=== PATIENT | male | born 1965 | race Caucasian/White ===

== ENCOUNTER 2017-05-28 11:11 | Observation (INO) | payer BC ==
[~2017-05-28] VITALS: Ht 195.6 cm; Wt 108.9 kg
[~2017-05-28 11:11] MED LIST: ASPIR 8181 MG PO; LOSARTAN POTASS25 MG PO; OMEPRAZOLE40 MG PO
[2017-05-28 12:31] LABS: BASOPHILS # (AUTO) 0.1 (0.0-0.1); BASOPHILS % 1.1 % (0.0-1.0); EOSINOPHILS # (AUTO) 0.3 (0.0-0.4); EOSINOPHILS % 4.9 % (0.0-6.0); HEMATOCRIT 45.2 % (38.2-49.6); LYMPHOCYTES # (AUTO) 1.6 (1.0-3.2); LYMPHOCYTES % 30.1 % (18.0-39.1); MEAN CORPUSCULAR HEMOGLOBIN 32.8 pg (28-32); MEAN CORPUSCULAR HGB CONC 35.4 g/dL (31-35); MEAN CORPUSCULAR VOLUME 92.6 fL (81-99); MONOCYTES # (AUTO) 0.6 (0.2-0.8); MONOCYTES % 11.7 % (4.4-11.3); NEUTROPHILS # (AUTO) 2.7 (2.1-6.9); NEUTROPHILS % 51.6 % (38.7-80.0); PLATELET COUNT 186 x10e3/uL (140-360); RED BLOOD COUNT 4.88 x10e6/uL (4.3-5.7); RED CELL DISTRIBUTION WIDTH 12.5 % (11.7-14.4)
--- NOTE | 2017-05-28 12:42 | Diagnostic Imaging Report ---
PROCEDURE: A single AP view of the chest. COMPARISON: 03/22/16 INDICATIONS: CHEST PRESSURE FINDINGS: Lines/tubes: None. Lungs: The lungs are well inflated and clear. There is no evidence of pneumonia or pulmonary edema. Minimal left basilar subsegmental atelectasis. Pleura: There is no pleural effusion or pneumothorax. Heart and mediastinum: The heart and the mediastinum are unremarkable. Bones: No acute bony abnormality. Old fracture deformity of posterior right eighth rib. Unchanged elevated left hemidiaphragm. IMPRESSION: 1. No acute cardiopulmonary disease. 2. No change from prior exam. Dictated by: Romario Sanders M.D. on 05/28/2017 at 12:51 Electronically approved by: Romario Sanders M.D. on 05/28/2017 at 12:51
[2017-05-28 12:46] LABS: INR 0.89; PROTHROMBIN TIME 12.5 seconds (11.9-14.5)
[2017-05-28 12:47] LABS: PARTIAL THROMBOPLASTIN TIME 26.3 seconds (23.8-35.5)
[2017-05-28 12:49] LABS: ALANINE AMINOTRANSFERASE 92 IU/L (0-55); ALBUMIN 3.6 g/dL (3.5-5.0); ALKALINE PHOSPHATASE 75 IU/L (40-150); ANION GAP 9.2 mmol/L (8-16); BLOOD UREA NITROGEN 17 mg/dL (7-26); BUN/CREATININE RATIO 19 (6-25); CALCIUM 8.9 mg/dL (8.4-10.2); CARBON DIOXIDE 29 mmol/L (22-29); CHLORIDE 106 mmol/L (98-107); CREATINE KINASE 155 IU/L (30-200); CREATININE, SERUM 0.91 mg/dL (0.72-1.25); EST GLOMERULAR FILTRATION RATE > 60 ML/MIN (60-); GLUCOSE 102 mg/dL (74-118); POTASSIUM 4.2 mmol/L (3.5-5.1); SODIUM 140 mmol/L (136-145)
[2017-05-28 12:56] LABS: TROPONIN I 0.013 ng/mL (0-0.300)
[2017-05-28] MEDS ORDERED: ONDANSETRON HCL INJ 2 MG/ML VIAL IV PRN (14:30)
[2017-05-28] MEDS ORDERED: MORPHINE SULFATE 2 MG/ML SYR IV PRN (14:30)
[2017-05-28] MEDS ORDERED: SODIUM CHLORIDE FLUSH 10 ML SYR INJ PRN (14:30)
[2017-05-28] MEDS ORDERED: MELOXICAM7.5 MG PO (15:50)
--- NOTE | 2017-05-28 16:52 | Diagnostic Imaging Report ---
EXAM: CTA Chest WITH and without contrast. DATE: 05/28/2017 2:14 PM INDICATION: Rule out dissection, pain. COMPARISON: None TECHNIQUE: CT angiogram of the chest was obtained before and after the administration of IV contrast. Prospective gating was performed. Images reviewed in the axial, coronal, and sagittal planes. 3D reconstructions performed on off-line workstation. IV Contrast: 100 mL Isovue-370. Total DLP: 1177 mGy*cm Est. Eff. Dose DLP x 0.015 x size factor mSv (CTDIvol has been reviewed and is below limits set by [facility]). FINDINGS: Lines and Tubes: None. Lower Neck: The visualized thyroid gland is grossly unremarkable with no suspicious or significant nodule identified. Heart and Great Vessels: The pulmonary artery measure 30 mm. The cardiothoracic radio measures 13/26. No intracardiac filling defect. No central pulmonary embolus identified. While motion artifact limits evaluation, there appear to be filling defects in right lower lobe segmental and subsegmental pulmonary arteries. No pericardial effusion present. No intramural hematoma identified on precontrast images. Aortic Annulus: 27 mm. Sinus of Valsalva: 48 mm. Ascending Aorta at level of PA: 38 mm. Mid Arch: 31 mm. Proximal Descendin mm. Mid Descendin mm. Distal Descendin mm. Other: No dissection identified. Coronary arteries grossly unremarkable with normal branching pattern. Lymph Nodes: No suspicious adenopathy. Lungs: Concavity posterior wall trachea consistent with expiratory imaging. Scattered opacities in the dependent portions of the lung bases statistically atelectasis. There is no pneumothorax. Upper abdomen: No acute findings. Bones and Soft Tissues: Healed right rib fractures. IMPRESSION: 1. No aortic aneurysm or dissection. 2. No central pulmonary and was. Wall motion artifact limits evaluation, there appear to be segmental and subsegmental right lower lobe pulmonary emboli present. There is no evidence of right heart strain. Clot burden overall small. 3. Dependent opacities suggest atelectasis. 4. Case relayed to Dr. Sarah Ojeda via ED nurse, Karissa Lee RN at 4:45 PM. Signed by: Dr. Luis Armando Reilly MD on 05/28/2017 4:48 PM
[2017-05-28] MEDS: ENOXAPARIN SODIUM INJ 100 MG/ML SYR SC SCH (17:51)
[2017-05-28] MEDS ORDERED: IOPAMIDOL 370 MG/ML 200 ML INFUS..BTL INJ ONE (18:59)
[2017-05-28] MEDS ORDERED: SODIUM CHLORIDE 0.9% 100 ML 0 ML ONE (19:00)
[2017-05-28] MEDS ORDERED: SODIUM CHLORIDE 0.9% 50ML 50 ML ONE (19:00)
--- NOTE | 2017-05-28 19:34 | History and Physical ---
DATE OF : 1965 A 51-year-old male, who comes with shortness of breath. HISTORY OF PRESENTING ILLNESS: This is a 51-year-old gentleman with a history of reflux esophagitis, history of recent chest pain, and stress test was initially held until patient came back from [place], was driving about 46 hours and did stop in the middle, but, however, the patient came in today with increased shortness of breath and seen staff editor, Dr. Busch, and was sent for ER evaluation with the CT of chest angiogram and was found to have left lower lobe pulmonary embolism. PAST MEDICAL HISTORY: Otherwise with high blood pressure and osteoarthritis and reflux esophagitis. MEDICINES HE TAKES AT HOME 1. Aspirin. 2. Losartan 25 mg. 3. Meloxicam 50 mg. 4. Omeprazole 40 mg. FAMILY HISTORY: History of cardiac disease in mother and also in father. SURGERIES: He had a wrist surgery, otherwise noncontributory. REVIEW OF SYSTEMS: Negative for chest pain. Positive for shortness of breath. No nausea, vomiting, diarrhea, no constipation, no rectal bleeding, no hematochezia, no hematemesis. EXAMINATION VITAL SIGNS: Stable. Patient is satting at 99%-100% on room air. Temperature is 96.4. Pulse is 75. Blood pressure is 160/77. Pulse oximetry is 98%-100%. HEENT: Normocephalic, atraumatic. Pupils react to light and accommodation. CVS: S1/S2 normal. Regular rate and rhythm. ABDOMEN: Nontender, nondistended. EXTREMITIES: No clubbing, no cyanosis, no edema. IMAGING: CT of chest and thorax CTA shows segmental, subsegmental right lower lobe emboli. No evidence of right heart strain and very small. LABORATORY VALUES: White count was 5.31, hemoglobin of 16, hematocrit was 45, count was 1.6. Chemistry, sodium was 140, potassium 4.2, BUN and creatinine 17/0.9. ALT, AST elevated at 49/92. Coags normal. ASSESSMENT 1. Pulmonary embolism. The patient is started on Lovenox. Will discuss with Dr. Busch and start the patient on Xarelto right away. 2. Will go ahead and check his arterial venous Dopplers bilaterally, lower extremities, and also do a coagulase study, panel. 3. Hypertension. Will continue his home medication and reflux, continue on his omeprazole. Further recommendation per clinical course. Will continue monitor patient along with cardiology. Job#: [id number] CQ
[2017-05-28 20:47] LABS: CREATINE KINASE MB 3.2 ng/mL (0.00-5.00); TROPONIN I 0.013 ng/mL (0-0.300)
[2017-05-29 05:40] LABS: CHOL/HDL RATIO 5.5 (3.9-4.7)
[2017-05-29 05:52] LABS: CREATINE KINASE MB 2.9 ng/mL (0.00-5.00); TROPONIN I 0.002 ng/mL (0-0.300)
[2017-05-29] MEDS: ENOXAPARIN SODIUM INJ 100 MG/ML SYR SC SCH (06:03)
[2017-05-29] MEDS ORDERED: RIVAROXABAN 15 MG TABLET PO SCH (09:00)
[2017-05-29] MEDS ORDERED: BENZOCAINE 20% SPR 60 ML CAN ONE (11:57)
[2017-05-29] MEDS ORDERED: SODIUM CHLORIDE 0.9% 1000ML 1,000 ML ONE (11:57)
[2017-05-29 13:06] VITALS: BP 133/87
--- NOTE | 2017-05-29 15:19 | Consultation ---
DATE OF CONSULTATION: May 28, 2017 CARDIOLOGY CONSULTATION REQUESTING PHYSICIAN: Dr. Douglas Larkin. REASON FOR CONSULTATION: Chest pain. HISTORY OF PRESENT ILLNESS: This is a 51-year-old man with history of moderate to severe aortic regurgitation, mildly dilated aortic root and recent negative nuclear stress test in 2017 who presented with complaints of chest pain. He reports he has been having chest tightness off and on for the last week associated with shortness of breath. The pain is 7 to 8 out of 10 in severity. It is not associated with any nausea, diaphoresis or radiation. He denies any orthopnea or PND; however, he does note he has some swelling in his ankles at the end of the day recently. REVIEW OF SYSTEMS: Negative except as per HPI. PAST MEDICAL HISTORY 1. Moderate to severe aortic regurgitation. 2. Mildly dilated aortic root. 3. Negative treadmill nuclear stress test in 2017. PAST SURGICAL HISTORY 1. Right hand surgery secondary to trauma. 2. Carpal tunnel surgery. 3. Left eye surgery as a child. ALLERGIES: NO KNOWN DRUG ALLERGIES. MEDICATIONS: Please see medication list. SOCIAL HISTORY: Quit smoking in 1995. Previously smoked approximately 1/2 pack a day for 4-5 years. No alcohol or illicit drugs. FAMILY HISTORY: Pertinent for mother with congestive heart failure and father with coronary artery bypass graft times 2. PHYSICAL EXAMINATION VITAL SIGNS: Temperature 97.6 degrees, pulse 61, respiratory rate 18, blood pressure 149/92, oxygen saturation 96%. GENERAL: Well-developed, well-nourished man, in no acute distress. HEENT: Normocephalic, atraumatic. Pupils are equal. No scleral icterus. NECK: Supple. No thyromegaly or cervical lymphadenopathy. No carotid bruits. LUNGS: Clear to auscultation bilaterally. No wheezes or crackles. CARDIOVASCULAR: Normal rate, regular rhythm. Grade 4/6 diastolic murmur, appreciated best at the right upper sternal border. Normal S1 and S2. ABDOMEN: Soft and nontender. EXTREMITIES: No edema. NEUROLOGIC: Nonfocal exam. LABS: WBC 5.3, hemoglobin 16, hematocrit 45.2, platelets 186,000. Sodium 140, potassium 4.2, chloride 106, CO2 of 29, BUN 17, creatinine 0.91. CTA of the chest with sinus of Valsalva measuring 48 mm, segmental and subsegmental right lower lobe pulmonary emboli. IMPRESSION 1. Acute pulmonary embolism. 2. Moderate to severe aortic regurgitation. 3. Mildly dilated aortic root. RECOMMENDATIONS: Continue home losartan and aspirin. NPO after midnight. We will plan for TOMMIE to evaluate for worsening of his aortic regurgitation as patient has had a change in severity of his murmur on exam. Bilateral lower extremity venous Dopplers have been ordered. Patient has been started on enoxaparin. Will discuss new oral anticoagulants with the patient. Thank you for this consult. Further recommendations pending test results. Job#: [id number]
--- NOTE | 2017-05-29 16:48 | Progress Note ---
DATE: May 29, 2017 CARDIOLOGY PROGRESS NOTE SUBJECTIVE: The patient denies chest pain or shortness of breath. He was seen prior to transesophageal echocardiogram to evaluate severity of his aortic regurgitation. OBJECTIVE VITAL SIGNS: Temperature 97.9 degrees, pulse 55, respiratory rate 16, blood pressure 132/84, oxygen saturation 99% on room air. GENERAL: Awake, alert, in no acute distress. LUNGS: Clear to auscultation bilaterally. No wheezes or crackles. CARDIOVASCULAR: Normal rate, regular rhythm. Grade 4/6 diastolic murmur appreciated best at the right upper sternal border. Normal S1 and S2. ABDOMEN: Soft, nontender. EXTREMITIES: No edema. CARDIAC MEDICATIONS: Enoxaparin 100 mg subcutaneous q.12 h. LABS: Troponin 0.002. Cholesterol 166, triglycerides 229, LDL 90, HDL 30. TELEMETRY: Normal sinus rhythm. IMPRESSION 1. Acute pulmonary embolism. 2. Moderate to severe aortic regurgitation. 3. Mildly dilated aortic root. RECOMMENDATIONS: Given patient's complaint of chest pain and shortness of breath, concerned this may be progression of his aortic regurgitation. We will proceed with transesophageal echocardiogram today to evaluate severity. Agree with Xarelto for anticoagulation given patient's newly diagnosed pulmonary embolism. There was no evidence of DVT on his bilateral lower extremity venous Dopplers. Titrate up losartan for blood pressure control given his mildly dilated aortic root. Further recommendations pending TOMMIE results. Thank you for this consult. We will continue to follow. Job#: [id number] EV
[2017-05-29] MEDS ORDERED: ENOXAPARIN SODIUM INJ 100 MG/ML SYR SC SCH (18:00)
[2017-05-29] MEDS ORDERED: MIDAZOLAM HCL 2 MG/2 ML VIAL ONE (19:34)
[2017-05-29] MEDS ORDERED: FENTANYL CITRATE/PF 100MCG/2 ML INJ ONE (19:34)
[2017-05-29] MEDS ORDERED: PROPOFOL IV EMULSION 10 MG/ML 20 ML VIAL ONE (19:44)
[2017-05-29] MEDS ORDERED: LIDOCAINE HCL 2% LOCAL INJ 5 ML SDV VIAL INJ ONE (19:44)
== END 2017-05-29 14:34 | disposition home or self-care (01) ==
LOC: ER 11:11 → ERHOLD 14:34 → EDBEDREQTM 16:53 → EDBEDREQ 05-29 05:17 → ERHOLD 05-29 07:15
PROVIDERS: ADMIT Family Medicine; ATTEND Family Medicine
DX: I26.99 Other pulmonary embolism without acute cor pulmonale (principal); I35.1 Nonrheumatic aortic (valve) insufficiency; I77.819 Aortic ectasia, unspecified site; I10 Essential (primary) hypertension; K21.0 Gastro-esophageal reflux disease with esophagitis; M19.90 Unspecified osteoarthritis, unspecified site; Z87.891 Personal history of nicotine dependence; Z79.82 Long term (current) use of aspirin
CPT/HCPCS: 36415 ×2; 71010; 71275; 80053; 80061; 81241; 81400; 82550 ×2; 82553 ×2; 84484 ×2; 85025; 85303; 85306; 85610; 85730; 93005; 93312; 93320; 93325; 93970; 99284; G0378 ×2; J1650 ×2; J2001; J2250; J7030; Q9967

== ENCOUNTER → 2019-01-17 | Outpatient (CLI) | payer BC ==
[~2019-01-17] MED LIST changes: +IOPAMIDOL 370 MG/ML 200 ML INFUS..BTL INJ ONE; +MELOXICAM7.5 MG PO; +SODIUM CHLORIDE 0.9% 100 ML 100 ML ONE
[2019-01-17 08:24] LABS: BLOOD UREA NITROGEN 20 mg/dL (7-26); BUN/CREATININE RATIO 20 (6-25); EST GLOMERULAR FILTRATION RATE > 60 ML/MIN (60-)
--- NOTE | 2019-01-17 10:29 | Diagnostic Imaging Report ---
ADDENDUM #1 INDICATION: Aortic aneurysm Signed by: Crispin Trimble MD on 02/03/2019 4:32 PM ORIGINAL REPORT EXAM: CT Angiogram Chest WITH contrast INDICATION: Evaluate for aortic aneurysm COMPARISON: None. TECHNIQUE: Chest was scanned utilizing a multidetector helical scanner from the lung apex through the level of the adrenal glands after administration of IV contrast in arterial phase. Coronal and sagittal reformations were obtained. CT Angiogram protocol was performed. 3D reconstruction was performed and viewed on dedicated workstation. Dose modulation, iterative reconstruction, and/or weight based adjustment of the mA/kV was utilized to reduce the radiation dose to as low as reasonably achievable. IV CONTRAST: 100 mL of Isovue-370 RADIATION DOSE: Total DLP: 541.0 mGy*cm COMPLICATIONS: None FINDINGS: VASCULAR FINDINGS: Thoracic aorta: Sinus of Valsalva: 3.9 cm Ascending Aorta at level of PA: 3.3 cm Mid Arch: 3.2 cm Proximal Descendin.6 cm Mid Descendin.3 cm Distal Descendin.5 cm Aortic hiatus: 2.2 cm. No evidence of aortic dissection. No significant atherosclerotic changes within the thoracic aorta. The main pulmonary artery is not enlarged. No evidence of central pulmonary embolism. LINES/ TUBES: None. LUNGS AND AIRWAYS: The central airways are patent. No focal consolidation. Mild bilateral lower lobe dependent subsegmental atelectasis. PLEURA: The pleural spaces are clear. HEART AND MEDIASTINUM: Partially visualized thyroid gland appears unremarkable. No mediastinal, hilar or axillary lymphadenopathy. No cardiomegaly or pericardial effusion. UPPER ABDOMEN: Limited views of the upper abdomen show no abnormality within the visualized liver, spleen, pancreas, or kidneys. The adrenal glands are normal. BONES/SOFT TISSUES: No acute osseous abnormality. No suspicious lytic or blastic lesion. Mild degenerative changes of the visualized spine. IMPRESSION: No aortic aneurysm or dissection. Aortic measurements as above. Signed by: Crispin Trimble MD on 01/17/2019 10:26 AM
== END ==
LOC: CT 07:04
PROVIDERS: ATTEND Internal Medicine
DX: I71.9 Aortic aneurysm of unspecified site, without rupture (principal)
CPT/HCPCS: 36415; 71275; 82565; 84520; Q9967

== ENCOUNTER → 2022-09-22 | Outpatient (CLI) | payer OTHER ==
[~2022-09-22] MED LIST changes: +IOPAMIDOL 370 MG/ML 100 ML INFUS..BTL INJ ONE; -IOPAMIDOL 370 MG/ML 200 ML INFUS..BTL INJ ONE; -SODIUM CHLORIDE 0.9% 100 ML 100 ML ONE
== END ==
LOC: CT 07:23
PROVIDERS: ATTEND Internal Medicine
DX: I77.819 Aortic ectasia, unspecified site (principal)
CPT/HCPCS: 36415; 71275; 82565; 84520; Q9967

== ENCOUNTER → 2024-01-04 | Day surgery (SDC) | payer BC ==
[~2024-01-04] MED LIST changes: +ATORVASTATIN CA20 MG PO; +CALCIDOL200 MCG/1 PO; +CELEBREX200 MG PO; +CYMBALTA30 MG PO; +FENTANYL CITRATE/PF 100MCG/2 ML INJ ONE; -IOPAMIDOL 370 MG/ML 100 ML INFUS..BTL INJ ONE; +LACTATED RINGER'S 1,000 ML ONE; +LIDOCAINE HCL 2% LOCAL INJ 5 ML SDV VIAL INJ ONE; +MIDAZOLAM HCL 2 MG/2 ML VIAL ONE; +MODAFINIL200 MG PO; +MOUNJARO7.5 MG/0.5; +NEURONTIN300 MG PO; +ONE DAILY FOR1 EAC2; +PANTOPRAZOLE SO40 MG PO; +PROPOFOL IV EMULSION 10 MG/ML 20 ML VIAL ONE; +SIMETHICONE 40 MG/0.6 ML BTL ONE
[2024-01-04 09:25] VITALS: BP 129/74; PULSE 78; RESP 16; O2SAT 96
== END | disposition home or self-care (01) ==
LOC: OR 06:57
PROVIDERS: ATTEND Internal Medicine Gastroenterology
DX: Z12.11 Encounter for screening for malignant neoplasm of colon (principal); K63.5 Polyp of colon; K57.30 Diverticulosis of large intestine without perforation or abscess without bleeding; K64.8 Other hemorrhoids; K29.50 Unspecified chronic gastritis without bleeding; K44.9 Diaphragmatic hernia without obstruction or gangrene; Z87.11 Personal history of peptic ulcer disease; I10 Essential (primary) hypertension; E78.5 Hyperlipidemia, unspecified; G47.33 Obstructive sleep apnea (adult) (pediatric); E11.9 Type 2 diabetes mellitus without complications; Z79.85 Long-term (current) use of injectable non-insulin antidiabetic drugs; Z79.84 Long term (current) use of oral hypoglycemic drugs; M06.9 Rheumatoid arthritis, unspecified; M19.91 Primary osteoarthritis, unspecified site; Z01.810 Encounter for preprocedural cardiovascular examination; Z79.899 Other long term (current) drug therapy
CPT/HCPCS: 43239; 45384; 93005; J2001; J2250; J2704; J3010; J7121

== ENCOUNTER 2024-12-25 09:32 | Emergency (ER) | payer BC ==
[~2024-12-25] VITALS: Ht 195.6 cm; Wt 107.5 kg
[~2024-12-25 09:32] MED LIST changes: -FENTANYL CITRATE/PF 100MCG/2 ML INJ ONE; -LACTATED RINGER'S 1,000 ML ONE; -LIDOCAINE HCL 2% LOCAL INJ 5 ML SDV VIAL INJ ONE; -MIDAZOLAM HCL 2 MG/2 ML VIAL ONE; -PROPOFOL IV EMULSION 10 MG/ML 20 ML VIAL ONE; -SIMETHICONE 40 MG/0.6 ML BTL ONE
[2024-12-25 09:41] VITALS: TEMP 98.6
[2024-12-25] MEDS ORDERED: SODIUM CHLORIDE FLUSH 10 ML SYR IV PRN (10:00)
[2024-12-25] MEDS: ASPIRIN 81 MG CHEW TAB PO ONE (10:07)
[2024-12-25 10:34] LABS: BASOPHILS % 0.4 % (0.0-1.0); EOSINOPHILS % 1.4 % (0.0-6.0); LYMPHOCYTES % 14.7 % (18.0-39.1); MONOCYTES % 9.5 % (4.4-11.3); NEUTROPHILS % 73.3 % (38.7-80.0); RED CELL DISTRIBUTION WIDTH 12.6 % (11.7-14.4)
[2024-12-25 11:09] LABS: EST GLOMERULAR FILTRATION RATE 98.0 ML/MIN (>=60)
[2024-12-25] MEDS ORDERED: IOPAMIDOL 370 MG/ML 100 ML INFUS..BTL INJ ONE (11:30)
[2024-12-25 13:00] VITALS: PULSE 82; RESP 18
[2024-12-25] MEDS ORDERED: ELIQUIS5 MG PO (14:03)
[2024-12-25 14:38] VITALS: BP 126/79; PULSE 89; RESP 16; TEMP 98.3; O2SAT 98
== END 2024-12-25 14:07 | disposition home or self-care (01) ==
LOC: ER 09:49
DX: R06.02 Shortness of breath (principal); I82.493 Acute embolism and thrombosis of other specified deep vein of lower extremity, bilateral; R53.1 Weakness; R53.83 Other fatigue; E78.5 Hyperlipidemia, unspecified; K21.9 Gastro-esophageal reflux disease without esophagitis; I10 Essential (primary) hypertension; F41.9 Anxiety disorder, unspecified; F32.A Depression, unspecified; Z79.01 Long term (current) use of anticoagulants; R94.31 Abnormal electrocardiogram [ECG] [EKG]
CPT/HCPCS: 36415; 71260; 80053; 83880; 84484; 85025; 93005; 94760; 99284; Q9967

== ENCOUNTER 2025-02-14 10:01 | Emergency (ER) | payer BC ==
[~2025-02-14 10:01] MED LIST changes: +ELIQUIS5 MG PO
== END 2025-02-14 12:51 | disposition short-term general hospital (02) ==
LOC: ER 11:17
DX: M79.605 Pain in left leg (principal)